=== PATIENT | female | born 1940 ===

== ENCOUNTER 2021-11-17 18:03 | Outpatient (REF) | payer MEDICARE, SELFPAY ==
[2021-11-17 16:01] LABS: Abs Immature Grans 0.03 10^3/uL (0.0-0.06); Absolute Basophil Count 0.07 10^3/uL (0.0-0.2); Absolute Eosinophil Count 0.09 10^3/uL (0.0-0.7); Absolute Lymphocyte Count 1.66 10^3/uL (1.2-3.4); Absolute Monocyte Count 0.98 10^3/uL (0.1-0.8); Absolute Neutrophil Count 4.47 10^3/uL (1.2-6.7); Eosinophils % 1.2; HGB 12.3 g/dL (11.2-15.7); Immature Grans % 0.4; Lymphocytes % 22.7; MCH 24.6 pg (27.0-33.0); MCHC 31.5 % (32.0-36.0); MCV 78 fL (80-95); MPV 10.3 fL (8.0-11.0); Monocytes % 13.4; Neutrophils % 61.3; Platelet Count 309 10^3/uL (130-400); RBC 5.01 10^6/uL (3.93-5.22); RDW 18.4 % (11.7-14.6); RDW-SD 51.4 fL
== END 2021-11-17 18:04 | disposition home or self-care (01) ==
LOC: NCHCN 18:03
PROVIDERS: Visit Provider Registered Nurse
DX: D64.9 Anemia, unspecified (principal)
CPT/HCPCS: 85025

== ENCOUNTER 2021-11-29 16:03 | Outpatient (REF) | payer MEDICARE, SELFPAY ==
[2021-11-29 21:08] LABS: Abs Immature Grans 0.02 10^3/uL (0.0-0.06); Absolute Basophil Count 0.07 10^3/uL (0.0-0.2); Absolute Eosinophil Count 0.15 10^3/uL (0.0-0.7); Absolute Lymphocyte Count 1.57 10^3/uL (1.2-3.4); Absolute Monocyte Count 0.74 10^3/uL (0.1-0.8); Absolute Neutrophil Count 4.08 10^3/uL (1.2-6.7); Basophils % 1.1; Eosinophils % 2.3; HCT 39.3 % (36.0-46.0); HGB 12.1 g/dL (11.2-15.7); Immature Grans % 0.3; Lymphocytes % 23.7; MCH 24.9 pg (27.0-33.0); MCHC 30.8 % (32.0-36.0); MCV 81 fL (80-95); MPV 10.5 fL (8.0-11.0); Monocytes % 11.2; Neutrophils % 61.4; Platelet Count 336 10^3/uL (130-400); RBC 4.85 10^6/uL (3.93-5.22); RDW 18.4 % (11.7-14.6); WBC 6.63 10^3/uL (4.4-10.8)
[2021-11-29 21:12] LABS: Ferritin 79 ng/mL (8-252)
[2021-11-29 21:16] LABS: Iron 52 ug/dL (50-170); Total Iron Binding Capacity 303 ug/dL (250-450); Transferrin Sat 17 % (15-50)
== END 2021-11-29 16:04 | disposition home or self-care (01) ==
LOC: NCHCN 16:03
PROVIDERS: PCP Registered Nurse; Visit Provider Registered Nurse
DX: D64.9 Anemia, unspecified (principal)
CPT/HCPCS: 82728; 83540; 83550; 85025